=== PATIENT | male | born 1985 | race African-American/Black ===

== ENCOUNTER 2017-03-09 03:01 | Emergency (ER) | payer MEDICAID | END 2017-03-09 04:21 | disposition left against medical advice (07) | LOC: ER 03:01 | DX: Z53.21 Procedure and treatment not carried out due to patient leaving prior to being seen by health care provider (principal) ==

== ENCOUNTER 2024-06-24 11:31 | Emergency (ER) | payer MEDICAID ==
[~2024-06-24] VITALS: Ht 188 cm; Wt 137.0 kg
[2024-06-24 11:36] VITALS: O2SAT 99
[2024-06-24 11:47] VITALS: BP 196/105; PULSE 89; RESP 17; TEMP 98.1; O2SAT 96
== END 2024-06-24 12:16 | disposition left against medical advice (07) ==
LOC: ER 11:31
DX: R04.0 Epistaxis (principal); Z53.21 Procedure and treatment not carried out due to patient leaving prior to being seen by health care provider